=== PATIENT | female | born 1950 | race Caucasian/White ===

== ENCOUNTER 2018-07-25 17:53 | Emergency (ER) | payer MEDICARE, OTHER, MEDICAID ==
[2018-07-25 19:00] LABS: URINE BLOOD (Dip) POC 2+ (NEGATIVE); URINE GLUCOSE (Dip) POC Negative (NEGATIVE); URINE KETONES (Dip) POC Negative (NEGATIVE); URINE LEUKOCYTE EST (Dip) POC 1+ (NEGATIVE); URINE NITRITE (Dip) POC Negative (NEGATIVE); URINE TOTAL PROTEIN POC 1+ (NEGATIVE)
[2018-07-25 19:00] LABS: URINE PH (Dip) POC 5.5 (5.0-8.5)
== END 2018-07-25 19:58 | disposition home or self-care (01) ==
LOC: FTE 17:53
DX: N39.0 Urinary tract infection, site not specified (principal)
CPT/HCPCS: 81003; 99283